=== PATIENT | male | born 1955 | race Caucasian/White ===

== ENCOUNTER 2024-10-11 14:28 | Inpatient (IN) | payer MEDICARE ==
[2024-10-11] MEDS ORDERED: Ondansetron ODT 4 MG TAB PO PRN (17:44)
[2024-10-11] MEDS ORDERED: Heparin 5,000 UNITS/ML VIAL SC SCH (21:00)
[2024-10-12 10:55] VITALS: BMI 44.5
[2024-10-12] MEDS: Cefepime 2 GM VIAL IVPB SCH (12:29)
[2024-10-12] MEDS: Micafungin 100 MG in Sodium Chloride 0.9% 100 ML IVPB SCH (15:16)
[2024-10-12] MEDS: Cefepime 2 GM in Sodium Chloride 0.9% 100 ML IVPB SCH (18:09)
[2024-10-12] MEDS: oxyCODONE ER 10 MG TAB PO SCH (20:39)
[2024-10-12] MEDS: Diazepam 5 MG TAB PO SCH (20:40)
[2024-10-12] MEDS: oxyCODONE 5 MG TAB PO SCH (20:40)
[2024-10-12] MEDS: METHENAMINE 1 GM PO SCH (20:41)
[2024-10-12] MEDS: tiZANidine HCl 4 MG TAB PO SCH (20:41)
[2024-10-12] MEDS: Famotidine 20 MG TAB PO SCH (20:41)
[2024-10-13 06:07] LABS: #Basophils 0.1 thou/uL (0.0-0.2); #Eosinophils 0.4 thou/uL (0.0-0.7); #Lymphocytes 1.6 thou/uL (1.20-3.40); #Monocytes 0.7 thou/uL (0.11-0.59); #Neutrophils 5.6 thou/uL (1.40-6.50); %Basophils 0.8 % (0.0-1.0); %Eosinophils 4.4 % (0.0-10.0); %Lymphocytes 19.8 % (21.0-51.0); %Monocytes 7.8 % (0.0-10.0); %Neutrophils 67.2 % (42.0-75.0); Hematocrit 25.7 % (42.0-52.0); Hemoglobin 8.1 g/dL (14.0-18.0); Mean Corpuscular HGB CONC 31.4 g/dL (32.0-36.0); Mean Corpuscular Hemoglobin 29.2 pg (27.0-31.0); Mean Corpuscular Volume 92.9 fl (78.0-98.0); Platelet Count 437 10x3/uL (130-400); RBC Distribution Width 14.7 % (11.5-14.5); Red Blood Cell (RBC) Count 2.76 mill/uL (4.70-6.10); White Blood Cell (WBC) Count 8.3 10x3/uL (4.8-10.8)
[2024-10-13 06:25] LABS: ALT (SGPT) 11 U/L (8-55); AST (SGOT) 11 U/L (5-34); Albumin 2.3 g/dL (3.4-4.8); Alkaline Phosphatase 63 U/L (40-110); Anion Gap 11 mmol/L (10-20); BUN (Urea Nitrogen) 18 mg/dL (8.4-25.7); Bilirubin, Total 0.3 mg/dL (0.2-1.2); Calc. Creatinine Clearance 225 mL/min (70-130); Carbon Dioxide 31 mmol/L (23-31); Chloride 100 mmol/L (98-107); Estimated GFR 106; Globulin 3.8 g/dL (2.4-3.5); Glucose 93 mg/dL (80-115); Potassium 4.1 mmol/L (3.5-5.1); Protein, Total 6.1 g/dL (5.8-8.1); Sodium 138 mmol/L (136-145)
[2024-10-13] MEDS: Loratadine 10 MG TAB PO SCH (08:34)
[2024-10-13] MEDS: Ascorbic Acid 500 mg Chewable Tablet PO SCH (08:34)
[2024-10-13] MEDS: Enoxaparin 40 MG (0.4 mL) SYRINGE SC SCH (08:34)
[2024-10-13] MEDS: Lisinopril 10 MG TAB PO SCH (08:35)
[2024-10-13] MEDS: Pregabalin 75 MG CAP PO SCH (08:36)
[2024-10-13] MEDS: Ferrous Sulfate 325 MG TAB PO SCH (08:38)
[2024-10-14] MEDS: oxyCODONE 5 MG TAB PO SCH (02:07)
[2024-10-14] MEDS: Pregabalin 75 MG CAP PO SCH (02:08)
[2024-10-14] MEDS: Senokot S 8.6-50 MG TAB PO PRN (09:14)
[2024-10-14] MEDS: Polyethylene Glycol 3350 17 GM Packet PO PRN (09:14)
[2024-10-14] MEDS: Bisacodyl 10 MG SUPP PR SCH (20:00)
[2024-10-15] MEDS: Acetaminophen 325 MG TAB PO PRN (14:41)
[2024-10-15] MEDS: oxyCODONE 5 MG TAB PO SCH (20:13)
[2024-10-15] MEDS: METHENAMINE 1 GM PO SCH (20:14)
[2024-10-15] MEDS: OXYCONTIN 80 MG PO SCH (20:38)
[2024-10-16] MEDS: oxyCODONE ER 80 MG TAB PO SCH (08:16)
[2024-10-16] MEDS: Citalopram 20 MG TAB PO SCH (08:17)
[2024-10-17 06:13] LABS: #Basophils 0.1 thou/uL (0.0-0.2); #Eosinophils 0.3 thou/uL (0.0-0.7); #Lymphocytes 1.2 thou/uL (1.20-3.40); #Monocytes 0.6 thou/uL (0.11-0.59); #Neutrophils 5.5 thou/uL (1.40-6.50); %Basophils 1.3 % (0.0-1.0); %Eosinophils 3.9 % (0.0-10.0); %Lymphocytes 15.7 % (21.0-51.0); %Monocytes 7.7 % (0.0-10.0); %Neutrophils 71.4 % (42.0-75.0); Hematocrit 26.2 % (42.0-52.0); Hemoglobin 8.2 g/dL (14.0-18.0); Mean Corpuscular HGB CONC 31.4 g/dL (32.0-36.0); Mean Corpuscular Hemoglobin 28.5 pg (27.0-31.0); Mean Corpuscular Volume 90.8 fl (78.0-98.0); Mean Platelet Volume 6.1 fL (7.4-10.4); Platelet Count 388 10x3/uL (130-400); RBC Distribution Width 14.2 % (11.5-14.5); Red Blood Cell (RBC) Count 2.88 mill/uL (4.70-6.10); White Blood Cell (WBC) Count 7.7 10x3/uL (4.8-10.8)
[2024-10-17 06:23] LABS: Anion Gap 12 mmol/L (10-20); BUN (Urea Nitrogen) 19 mg/dL (8.4-25.7); Calc. Creatinine Clearance 218 mL/min (70-130); Calcium 8.8 mg/dL (7.8-10.44); Carbon Dioxide 29 mmol/L (23-31); Chloride 100 mmol/L (98-107); Estimated GFR 105; Glucose 88 mg/dL (80-115); Sodium 137 mmol/L (136-145)
[2024-10-20] MEDS: Bisacodyl 10 MG SUPP PR SCH (20:05)
[2024-10-22 18:11] LABS: #Basophils 0.1 thou/uL (0.0-0.2); #Eosinophils 0.2 thou/uL (0.0-0.7); #Lymphocytes 1.3 thou/uL (1.20-3.40); #Monocytes 0.5 thou/uL (0.11-0.59); #Neutrophils 5.1 thou/uL (1.40-6.50); %Basophils 1.4 % (0.0-1.0); %Eosinophils 3.3 % (0.0-10.0); %Lymphocytes 18.4 % (21.0-51.0); %Neutrophils 69.9 % (42.0-75.0); Hematocrit 32.9 % (42.0-52.0); Hemoglobin 10.2 g/dL (14.0-18.0); Mean Corpuscular Hemoglobin 28.4 pg (27.0-31.0); Mean Corpuscular Volume 91.4 fl (78.0-98.0); Mean Platelet Volume 6.3 fL (7.4-10.4); Platelet Count 430 10x3/uL (130-400); RBC Distribution Width 14.9 % (11.5-14.5); White Blood Cell (WBC) Count 7.3 10x3/uL (4.8-10.8)
[2024-10-23 07:14] VITALS: BP 107/64; TEMP 97.8
[2024-10-23] MEDS: Cefepime 2 GM in Sodium Chloride 0.9% 100 ML IVPB SCH (08:18)
[2024-10-23 10:55] VITALS: BMI 46.3
== END 2024-10-23 13:00 | disposition short-term general hospital (02) | DRG 949 ==
LOC: NAV ACUTE 10-12 10:27
PROVIDERS: ADMIT Student in an Organized Health Care Education/Training Program; ATTEND Student in an Organized Health Care Education/Training Program
DX: S30.0XXD Contusion of lower back and pelvis, subsequent encounter (principal); G82.20 Paraplegia, unspecified; Z68.42 Body mass index [BMI] 45.0-49.9, adult; S30.1XXD Contusion of abdominal wall, subsequent encounter; N31.9 Neuromuscular dysfunction of bladder, unspecified; I10 Essential (primary) hypertension; E66.01 Morbid (severe) obesity due to excess calories; G47.33 Obstructive sleep apnea (adult) (pediatric); Z98.890 Other specified postprocedural states; Z79.899 Other long term (current) drug therapy; D50.9 Iron deficiency anemia, unspecified; J30.2 Other seasonal allergic rhinitis; F32.9 Major depressive disorder, single episode, unspecified; V89.2XXD Person injured in unspecified motor-vehicle accident, traffic, subsequent encounter; Z74.01 Bed confinement status
CPT/HCPCS: 36415; 80048; 80053; 85025; 86140; 97602; J0692; J1650; J2248